=== PATIENT | female | born 2000 | race American Indian/Alaskan Native ===

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

== ENCOUNTER 2021-10-13 08:35 | Emergency (ER) | payer SELFPAY ==
[2021-10-13 08:49] VITALS: BP 136/76
--- NOTE | 2021-10-13 09:48 | Emergency Department Report ---
Minor Respiratory - HPI Chief Complaint: Upper Respiratory Infection Stated Complaint: FLU LIKE SYMPTOMS X2DAYS Time Seen by Provider: 10/13/21 09:44 Duration: 2 Days Minor Respiratory: Yes Rhinorrhea, Yes Sore Throat, Yes Able to Tolerate Fluids, Yes Cough, Yes Sick Contacts, No Ear Pain, No Chest Pain, No Shortness of Breath, No Fever Other History: 21-year-old morbid obese -Maced[place] female presents to the emergency room for 2-day history of ear pain headache body aches sore throat nasal congestion. Patient states she is vaccinated but not boosted. She reports she took a Covid test that was -2 weeks ago. Her symptoms started 2 days ago. Patient states has been taking ibuprofen Mucinex with no relief. She denies any fever no chills no nausea no vomiting no chest pain or shortness of breath. ED Review of Systems ROS: Stated complaint: FLU LIKE SYMPTOMS X2DAYS Other details as noted in HPI Comment: All other systems reviewed and negative ED Past Medical Hx - Past Medical History Hx Hypertension: No Hx Congestive Heart Failure: No Hx Diabetes: No Hx Deep Vein Thrombosis: No Hx Renal Disease: No Hx Sickle Cell Disease: No Hx Seizures: No Hx Asthma: No Hx COPD: No Hx HIV: No - Social History Smoking Status: Never Smoker - Medications Home Medications: Home Medications Medication Instructions Recorded Confirmed Last Taken Type Ibuprofen [Motrin] 600 mg PO Q8H PRN #60 tablet 05/28/20 Unknown Rx Vitamin 1 tab PO QDAY 05/28/20 05/28/20 05/27/20 10:00 History oxyCODONE /ACETAMINOPHEN [Percocet 1 tab PO Q6HR PRN #20 tablet 05/28/20 Unknown Rx 5/325] Minor Respiratory Exam - Exam General: Vital signs noted. No distress. Alert and acting appropriately. HEENT: Yes Moist Mucous Membranes, No Pharyngeal Erythema, No Pharyngeal Exudates, No Rhinorrhea, No Conjuctival Injection, No Frontal Tenderness, No M axillary Tenderness Ear: Neither TM Bulge, Neither TM Erythema, Neither EAC Pain, Neither EAC Discharge Neck: Yes Supple, No Adenopathy Lungs: Yes Good Air Exchange, No Wheezes, No Ronchi, No Stridor, No Cough, No Labored Respirations, No Retractions, No Use of Accessory Muscles, No Other Abnormal Lung Sounds Heart: Yes Regular, No Murmur Abdomen: Yes Normal Bowel Sounds, No Tenderness, No Peritoneal Signs Skin: No Rash, No Edema Neurologic: Alert and oriented, no deficits. Musculoskeletal: Unremarkable. ED Course Vital Signs 10/13/21 08:47 Temperature 98.7 F Pulse Rate 87 Respiratory 14 Rate Blood Pressure 136/76 [Left] O2 Sat by Pulse 100 Oximetry ED Medical Decision Making - Medical Decision Making 21-year-old morbid obese -Maced[place] female presents to the emergency room for 2-day history of ear pain headache body aches sore throat nasal congestion. Patient states she is vaccinated but not boosted. She reports she took a Covid test that was -2 weeks ago. Her symptoms started 2 days ago. Patient states has been taking ibuprofen Mucinex with no relief. She denies any fever no chills no nausea no vomiting no chest pain or shortness of breath. Patient has stable vital signs respiratory is stable she is nontoxic in appearance. Discussed with patient she most likely has Covid that she needs to get retested. Encouraged her to increase her fluids advance her diet as tolerated ibuprofen Tylenol [id number] Mucinex or Afrin. Rest and follow- up with her primary care provider. Critical care attestation.: If time is entered above; I have spent that time in minutes in the direct care of this critically ill patient, excluding procedure time. ED Disposition Clinical Impression: Suspected COVID-19 virus infection, Viral syndrome Disposition: HOME / SELF CARE / HOMELESS Is pt being admited?: No Does the pt Need Aspirin: No Condition: Stable Instructions: Viral Respiratory Infection, Onke-Lc-Osvn, Prevent the Spread of COVID-19 if You Are Sick - CDC, COVID-19: How to Protect Yourself and Others - CDC, COVID-19 Frequently Asked Questions Additional Instructions: Your symptoms appear most consistent with a nonspecific viral syndrome. However, given this current pandemic, COVID-19 is in the differential of possibilities. Despite your previous negative COVID-19 test, I do recommend repeat outpatient Covid 19 testing. In the meantime, isolate/quarantine yourself and stay away from anyone who is elderly, immunocompromised or chronically ill. You can use ibuprofen every 6-8 hours and Tylenol every 4-8 hours, using the dosing on the back of the bottle, as needed for any fever or body aches. Return to the emergency department with any worsening of your symptoms, development of chest pain or shortness of breath, or with any acute distress. Referrals: Your, primary care provider [Other] - 3-5 Days Forms: Work/School Release Form(ED) Time of Disposition: 09:48
== END 2021-10-13 09:58 | disposition home or self-care (01) ==
LOC: ED 08:35
DX: B34.9 Viral infection, unspecified (principal); Z20.822 Contact with and (suspected) exposure to COVID-19
CPT/HCPCS: 99282

== ENCOUNTER 2021-12-11 22:33 | Emergency (ER) | payer SELFPAY ==
[2021-12-11 22:57] VITALS: BP 132/72
[2021-12-12] MEDS ORDERED: IBUPROFEN 600 MG TAB PO ONE (00:46)
[2021-12-12] MEDS ORDERED: ACETAMINOPHEN 500 MG TAB PO ONE (00:46)
--- NOTE | 2021-12-12 01:31 | XRay Report ---
LEFT KNEE 3 VIEW(S) INDICATION / CLINICAL INFORMATION: Pain - fall COMPARISON: None available. FINDINGS: BONES / JOINT(S): No acute fracture or subluxation. No significant arthritis. SOFT TISSUES: No significant abnormality. ADDITIONAL FINDINGS: None. IMPRESSION: 1.No acute findings. No significant abnormality. Signer Name: Charles Johnson II, MD Signed: 12/12/2021 1:27 AM Workstation Name: [id number]
--- NOTE | 2021-12-12 01:43 | Emergency Department Report ---
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 Patient states that the pain is especially worse with any active range of motion or ambulation. Patient denies head or neck injuries, nausea and vomiting, loss of consciousness, chest pain, shortness of breath, hip pain, back pain, numbness and tingling or weakness of lower extremities bilaterally. MD Complaint: knee injury (left knee pain s/o fall) -: Sudden, hour(s) (12) Injury: Knee: Left (left knee) Type of Injury: blunt Place: work Severity: severe Severity scale (0 -10): 8 Improves With: rest Worsens With: weight bearing, movement, palpation Context: fall, direct blow, other (fell off a stationary truck) Associated Symptoms: swelling, able to partially bear weight. denies: snap/pop sensation, numbness, tingling, ambulatory - Related Data Home Medications Medication Instructions Recorded Confirmed Last Taken Vitamin 1 tab PO QDAY 05/28/20 05/28/20 05/27/20 10:00 Previous Rx's Medication Instructions Recorded Last Taken Type Ibuprofen [Motrin] 600 mg PO Q8H PRN #60 tablet 05/28/20 Unknown Rx oxyCODONE /ACETAMINOPHEN [Percocet 1 tab PO Q6HR PRN #20 tablet 05/28/20 Unknown Rx 5/325] Ibuprofen [Motrin] 800 mg PO Q8HR PRN #30 tablet 12/12/21 Unknown Rx traMADoL [Ultram] 50 mg PO Q6HR PRN #12 tablet 12/12/21 Unknown Rx Allergies Allergy/AdvReac Type Severity Reaction Status Date / Time shrimp Allergy Angioedema Verified 10/13/21 08:49 ED Review of Systems ROS: Stated complaint: HURT LEG Other details as noted in HPI Constitutional: denies: chills, fever Eyes: denies: eye pain, eye discharge, vision change ENT: denies: ear pain, throat pain Respiratory: denies: cough, shortness of breath, wheezing Cardiovascular: denies: chest pain, palpitations, dyspnea on exertion Endocrine: no symptoms reported Gastrointestinal: denies: abdominal pain, nausea, vomiting, diarrhea Genitourinary: denies: urgency, dysuria, discharge Musculoskeletal: joint swelling (left knee), arthralgia (left knee pain). denies: back pain Skin: denies: rash, lesions Neurological: denies: headache, weakness, paresthesias Psychiatric: denies: anxiety, depression Hematological/Lymphatic: denies: easy bleeding, easy bruising ED Past Medical Hx - Past Medical History Previous Medical History?: No Hx Hypertension: No Hx Heart Attack/AMI: No Hx Congestive Heart Failure: No Hx Diabetes: No Hx Deep Vein Thrombosis: No Hx Renal Disease: No Hx Sickle Cell Disease: No Hx Seizures: No Hx Asthma: No Hx COPD: No Hx HIV: No - Surgical History Past Surgical History?: Yes Additional Surgical History: c section - Social History Smoking Status: Unknown if ever smoked - Medications Home Medications: Home Medications Medication Instructions Recorded Confirmed Last Taken Type Ibuprofen [Motrin] 600 mg PO Q8H PRN #60 tablet 05/28/20 Unknown Rx Vitamin 1 tab PO QDAY 05/28/20 05/28/20 05/27/20 10:00 History oxyCODONE /ACETAMINOPHEN [Percocet 1 tab PO Q6HR PRN #20 tablet 05/28/20 Unknown Rx 5/325] Ibuprofen [Motrin] 800 mg PO Q8HR PRN #30 tablet 12/12/21 Unknown Rx traMADoL [Ultram] 50 mg PO Q6HR PRN #12 tablet 12/12/21 Unknown Rx ED Physical Exam - General Limitations: No Limitations General appearance: alert, in no apparent distress - Head Head exam: Present: atraumatic, normocephalic, normal inspection - Eye Eye exam: Present: normal appearance, PERRL, EOMI Pupils: Present: normal accommodation - ENT ENT exam: Present: normal exam, normal orophraynx, mucous membranes moist, TM's normal bilaterally, normal external ear exam - Neck Neck exam: Present: normal inspection, full ROM. Absent: tenderness - Respiratory Respiratory exam: Present: normal lung sounds bilaterally. Absent: respiratory distress, wheezes, rales, rhonchi, chest wall tenderness, accessory muscle use, decreased breath sounds - Cardiovascular Cardiovascular Exam: Present: regular rate, normal rhythm, normal heart sounds. Absent: systolic murmur, diastolic murmur, rubs, gallop - GI/Abdominal GI/Abdominal exam: Present: soft, normal bowel sounds. Absent: tenderness, guarding, rebound, hyperactive bowel sounds, mass - Extremities Exam Extremities exam: Present: normal inspection, full ROM, tenderness (Palpable left knee tenderness), normal capillary refill, joint swelling (left knee). Absent: pedal edema, calf tenderness - Back Exam Back exam: Present: normal inspection, full ROM. Absent: tenderness, CVA tenderness (R), CVA tenderness (L), muscle spasm, paraspinal tenderness, vertebral tenderness - Neurological Exam Neurological exam: Present: alert, oriented X3, CN II-XII intact, normal gait, reflexes normal - Psychiatric Psychiatric exam: Present: normal affect, normal mood - Skin Skin exam: Present: warm, dry, intact, normal color. Absent: rash ED Course Vital Signs 12/11/21 22:55 Temperature 98.7 F Pulse Rate 98 H Respiratory 18 Rate Blood Pressure 132/72 O2 Sat by Pulse 96 Oximetry ED Lower Extremity MDM - Radiology Data Radiology results: report reviewed, image reviewed [facility] [address] [place] [address] XRay Report Signed Patient: INOCENCIO JOHNSON MR#: [id number] : 2000 Acct:[id number] Age/Sex: 21 / F ADM Date: 12/11/21 Loc: ED Attending Dr: Ordering Physician: MAMIE CASTANO Date of Service: 12/12/21 Procedure(s): XR knee 3V LT Accession Number(s): [id number] cc: MAMIE CASTANO Fluoro Time In Minutes: LEFT KNEE 3 VIEW(S) INDICATION / CLINICAL INFORMATION: Pain - fall COMPARISON: None available. FINDINGS: BONES / JOINT(S): No acute fracture or subluxation. No significant arthritis. SOFT TISSUES: No significant abnormality. ADDITIONAL FINDINGS: None. IMPRESSION: 1.No acute findings. No significant abnormality. Signer Name: Jerald Hollis II, MD Signed: 12/12/2021 1:27 AM Workstation Name: [id number] Transcribed By: NORA Dictated By: JERALD HOLLIS II, MD Electronically Authenticated By: JERALD HOLLIS II, MD Signed Date/Time: 12/12/21126 DD/ 6 TD/TT: Print - Medical Decision Making This is a 21-year-old -English female with no past medical history who presents to the ED with complaint of acute onset persistent left knee pain after she slipped off a stationary delivery truck and fell down on her back but hyperextended her left knee about 12 hours ago. Patient states that the pain is especially worse with any active range of motion or ambulation. In the ED, patient is alert and oriented x3 and is not in any distress. Patient was treated for pain in the ED. Left knee x-ray showed no acute fractures or subluxations. Patient symptoms are likely due to musculoskeletal muscle strain or left knee sprain. Patient left knee was splinted with Momo wrap and the patient was discharged home on pain medications and advised to follow-up with her primary care physician in 5 to 7 days for reevaluation or return to the ED immediately if symptoms get worse. - Differential Diagnosis knee sprain; knee fracture; muscle strain; knee contusion Critical care attestation.: If time is entered above; I have spent that time in minutes in the direct care of this critically ill patient, excluding procedure time. ED Disposition Clinical Impression: Sprain of left knee/leg Qualifiers: Encounter type: initial encounter Qualified Code(s): S83.92XA - Sprain of unspecified site of left knee, initial encounter Contusion of left knee and lower leg Qualifiers: Encounter type: initial encounter Qualified Code(s): S80.02XA - Contusion of left knee, initial encounter; S80.12XA - Contusion of left lower leg, initial encounter Disposition: 01 HOME / SELF CARE / HOMELESS Is pt being admited?: No Does the pt Need Aspirin: No Condition: Stable Instructions: Contusion, [id number], Knee Sprain, Adult, [id number] Additional Instructions: The left knee x-ray showed no acute fractures or subluxations. Therefore your injuries are likely musculoskeletal due to knee sprain or muscle strain. Therefore take medications with food, drink plenty of fluids and follow-up with your primary care physician in 7 to 10 days for reevaluation. Return to the ED immediately if symptoms get worse. Prescriptions: Ibuprofen [Motrin] 800 mg PO Q8HR PRN #30 tablet PRN Reason: Pain , Severe (7-10) traMADoL [Ultram] 50 mg PO Q6HR PRN #12 tablet PRN Reason: Pain Referrals: CIRILO FLORES MD [Staff Physician] - 3-5 Days Forms: Work/School Release Form(ED) Time of Disposition: 01:44 Print Language: SWEDISH
== END 2021-12-12 02:04 | disposition home or self-care (01) ==
LOC: ED 22:33
DX: S83.92XA Sprain of unspecified site of left knee, initial encounter (principal); Z98.890 Other specified postprocedural states; Z91.013 Allergy to seafood; Z79.899 Other long term (current) drug therapy; W18.39XA Other fall on same level, initial encounter; Y93.89 Activity, other specified; Y92.89 Other specified places as the place of occurrence of the external cause; Y99.8 Other external cause status
CPT/HCPCS: 99283